=== PATIENT | male | born 1990 ===

== ENCOUNTER 2021-06-12 12:24 | Emergency (ER) | payer SELFPAY ==
[~2021-06-12] VITALS: Ht 162.6 cm; Wt 90.7 kg
[2021-06-12] MEDS ORDERED: PARO20 PO (12:59)
[2021-06-12] MEDS ORDERED: QUETIAPINE FUM300 M3 PO (12:59)
== END 2021-06-12 12:53 | disposition home or self-care (01) ==
LOC: ER 12:24
DX: Z76.0 Encounter for issue of repeat prescription (principal); G47.00 Insomnia, unspecified; F41.9 Anxiety disorder, unspecified; Z79.899 Other long term (current) drug therapy
CPT/HCPCS: 99281